=== PATIENT | female | born 1985 | race American Indian/Alaskan Native ===

== ENCOUNTER 2021-04-16 12:52 | Emergency (ER) | payer MEDICAID, OTHER ==
[2021-04-16 13:17] VITALS: BP 126/70
--- NOTE | 2021-04-16 15:40 | Emergency Department Report ---
ED ENT HPI - General Chief complaint: Earache Stated complaint: BUG IN EAR Time Seen by Provider: 04/16/21 13:48 Source: patient Mode of arrival: Ambulatory Limitations: No Limitations - History of Present Illness Initial comments: 35-year-old -[place]og[place] female presents to the emergency room stating she has got a bug in her right ear since about 4 AM today. Patient states that she used vegetable oil to get it out but does not feel like it is moving anymore but states she feels it is still there. She reports she is up-to-date on all her vaccines. Has not got the Covid vaccine. She denies any drainage no headache no change of vision no hearing loss. MD complaint: foreign body -: This morning Time: 04:00 Location: R ear Severity scale (0 -10): 7 Consistency: constant Improves with: none Associated Symptoms: denies: tinnitus, hearing loss, discharge from ear - Related Data Previous Rx's Medication Instructions Recorded Last Taken Type Ibuprofen [Motrin] 800 mg PO TID PRN #30 tablet 08/09/13 Unknown Rx Methylergonovine [Methergine] 0.2 mg PO Q8HR #9 tablet 08/09/13 Unknown Rx oxyCODONE /ACETAMINOPHEN [Percocet 1 - 2 tab PO Q4HR PRN #30 tablet 05/24/15 Unknown Rx 5/325 mg] Ibuprofen [Motrin 800 MG tab] 800 mg PO TID PRN #30 tablet 04/16/21 Unknown Rx Neomycin/Polymyxin B/Hydrocort 4 drops TID 10 Days #1 bottle 04/16/21 Unknown Rx [Xlresovh-Wykjsijwn-Kc Ear Susp] Allergies Allergy/AdvReac Type Severity Reaction Status Date / Time No Known Allergies Allergy Verified 08/08/13 07:00 ED Dental HPI - General Chief complaint: Earache Stated complaint: BUG IN EAR Time Seen by Provider: 04/16/21 13:48 Source: patient Mode of arrival: Ambulatory Limitations: No Limitations - Related Data Previous Rx's Medication Instructions Recorded Last Taken Type Ibuprofen [Motrin] 800 mg PO TID PRN #30 tablet 08/09/13 Unknown Rx Methylergonovine [Methergine] 0.2 mg PO Q8HR #9 tablet 08/09/13 Unknown Rx oxyCODONE /ACETAMINOPHEN [Percocet 1 - 2 tab PO Q4HR PRN #30 tablet 05/24/15 Unknown Rx 5/325 mg] Ibuprofen [Motrin 800 MG tab] 800 mg PO TID PRN #30 tablet 04/16/21 Unknown Rx Neomycin/Polymyxin B/Hydrocort 4 drops TID 10 Days #1 bottle 04/16/21 Unknown Rx [Ndujqxnc-Uqwgfhbck-Uw Ear Susp] Allergies Allergy/AdvReac Type Severity Reaction Status Date / Time No Known Allergies Allergy Verified 08/08/13 07:00 ED Review of Systems ROS: Stated complaint: BUG IN EAR Other details as noted in HPI Comment: All other systems reviewed and negative ED Past Medical Hx - Past Medical History Previous Medical History?: No Hx Hypertension: No Hx Congestive Heart Failure: No Hx Diabetes: No Hx Deep Vein Thrombosis: No Hx Renal Disease: No Hx Sickle Cell Disease: No Hx Seizures: No Hx Asthma: No Hx COPD: No Hx HIV: No - Surgical History Past Surgical History?: Yes Additional Surgical History: , widsom teeth - Social History Smoking Status: Never Smoker Substance Use Type: Marijuana - Medications Home Medications: Home Medications Medication Instructions Recorded Confirmed Last Taken Type Ibuprofen [Motrin] 800 mg PO TID PRN #30 tablet 08/09/13 05/26/15 Unknown Rx Methylergonovine [Methergine] 0.2 mg PO Q8HR #9 tablet 08/09/13 05/26/15 Unknown Rx oxyCODONE /ACETAMINOPHEN [Percocet 1 - 2 tab PO Q4HR PRN #30 tablet 05/24/15 Unknown Rx 5/325 mg] Ibuprofen [Motrin 800 MG tab] 800 mg PO TID PRN #30 tablet 04/16/21 Unknown Rx Neomycin/Polymyxin B/Hydrocort 4 drops TID 10 Days #1 bottle 04/16/21 Unknown Rx [Cdaotwbb-Lxegnenmw-Xb Ear Susp] ED Physical Exam - General Limitations: No Limitations General appearance: alert, in no apparent distress - Head Head exam: Present: atraumatic, normocephalic - Eye Eye exam: Present: normal appearance - Expanded ENT Exam Expanded TM/Canal exam: Loss of Landmarks: Right TM, Foreign Body: Right TM (Bug) - Neck Neck exam: Present: normal inspection, full ROM - Respiratory Respiratory exam: Absent: normal lung sounds bilaterally, accessory muscle use - Cardiovascular Cardiovascular Exam: Present: regular rate - Back Exam Back exam: Present: normal inspection, full ROM - Neurological Exam Neurological exam: Present: alert, oriented X3, normal gait - Psychiatric Psychiatric exam: Present: normal affect, normal mood - Skin Skin exam: Present: warm, dry, intact, normal color. Absent: rash ED Course Vital Signs 04/16/21 04/16/21 13:16 13:40 Temperature 98.3 F Pulse Rate 84 Respiratory 18 16 Rate Blood Pressure 126/70 O2 Sat by Pulse 100 Oximetry ED Medical Decision Making - Medical Decision Making 35-year-old -[place] female presents to the emergency room stating she has got a bug in her right ear since about 4 AM today. Patient states that she used vegetable oil to get it out but does not feel like it is moving anymore but states she feels it is still there. She reports she is up-to-date on all her vaccines. Has not got the Covid vaccine. She denies any drainage no headache no change of vision no hearing loss. Tent pulled out foreign body. Was able to pull half the bug out other half is stuck in the top of the tympanic membrane located around 11:00. Patient be placed on eardrops for pain and infection and referral to ear nose and throat. Tylenol or ibuprofen for pain management. Critical care attestation.: If time is entered above; I have spent that time in minutes in the direct care of this critically ill patient, excluding procedure time. ED Disposition Clinical Impression: Foreign body of ear, right Disposition: [id number] TO HOME OR SELFCARE Is pt being admited?: No Does the pt Need Aspirin: No Condition: Stable Instructions: Ear Foreign Body, Tqwr-te-Caci Additional Instructions: Please take pain medication as needed. Is very important for you to use the eardrops and to follow-up with the rn research. I have listed to below for your convenience. Prescriptions: Ibuprofen [Motrin 800 MG tab] 800 mg PO TID PRN #30 tablet PRN Reason: Pain Neomycin/Polymyxin B/Hydrocort [Bzrblicm-Jtfhtdaeu-Sl Ear Susp] 4 drops TID 10 Days #1 bottle Referrals: JORDAN SHELBY MD [Staff Physician] - 3-5 Days JOHN BLANKENSHIP MD [Referring] - 3-5 Days Forms: Work/School Release Form(ED)
[2021-04-16] MEDS ORDERED: IBUPROFEN 600 MG TAB PO ONE (15:43)
== END 2021-04-16 16:12 | disposition home or self-care (01) ==
LOC: ED 12:52
DX: T16.1XXA Foreign body in right ear, initial encounter (principal); F12.10 Cannabis abuse, uncomplicated; Z98.890 Other specified postprocedural states; Z79.899 Other long term (current) drug therapy; X58.XXXA Exposure to other specified factors, initial encounter; Y93.89 Activity, other specified; Y92.89 Other specified places as the place of occurrence of the external cause; Y99.8 Other external cause status
CPT/HCPCS: 99282